=== PATIENT | male | born 1950 | race Hispanic/Latino ===

== ENCOUNTER 2017-12-09 11:49 | Emergency (ER) | payer MEDICARE ==
[2017-12-09] MEDS ORDERED: ONDANSETRON HCL 4 MG/2 ML VIAL ONE ×2 (12:08→12:52)
[2017-12-09] MEDS ORDERED: SODIUM CHLORIDE 0.9% 1000ML 1,000 ML IV ONE (12:09)
[2017-12-09 12:20] LABS: BASOPHILS % (AUTO) 0.3 % (0.0-5.0); HEMATOCRIT 43.8 % (42-54); MEAN CORPUSCULAR HEMOGLOBIN 31.4 pg (27.0-33.0); MEAN CORPUSCULAR HGB CONC 34.2 g/dL (32.0-36.0); MEAN CORPUSCULAR VOLUME 91.9 fL (79-99); MONOCYTES % (AUTO) 4.8 % (3.0-13.0); NEUTROPHILS % (AUTO) 87.6 % (40.0-77.0); PLATELET COUNT (AUTO) 251 K/uL (130-400); RED BLOOD CELL COUNT(AUTO) 4.77 MIL/uL (4.50-6.20); RED CELL DISTRIBUTION WIDTH 12.6 % (11.0-15.5); WHITE BLOOD COUNT (AUTO) 10.9 K/uL (4.8-10.8)
[2017-12-09 12:33] LABS: CREATININE 1.6 mg/dL (0.5-1.5); POTASSIUM 4.4 mmol/L (3.5-5.1)
[2017-12-09 12:52] LABS: LYMPHOCYTES % (AUTO) 7.3 % (21.0-51.0)
[2017-12-09] MEDS ORDERED: MORPHINE SULFATE 2 MG/ML 1ML SYG ONE (12:52)
[2017-12-09 12:55] LABS: ALBUMIN 3.5 g/dL (3.5-5.0); BILIRUBIN,TOTAL 0.8 mg/dL (0.2-1.0); CREATINE KINASE MB 0.8 ng/mL (0.5-3.6); TOTAL PROTEIN, SERUM 8.3 g/dL (6.0-8.3)
[2017-12-09 13:18] LABS: INR 0.97 (0.85-1.15); PARTIAL THROMBOPLASTIN TIME 28.3 SEC (26.3-35.5); PROTHROMBIN TIME 10.2 SEC (9.6-11.6)
[2017-12-09] MEDS ORDERED: INSULIN HUMULIN R 100 UNIT/ML 3ML SQ ONE (13:56)
== END 2017-12-09 17:40 | disposition home or self-care (01) ==
LOC: EDH 11:49
DX: J40 Bronchitis, not specified as acute or chronic (principal); E86.0 Dehydration; R42 Dizziness and giddiness; E11.9 Type 2 diabetes mellitus without complications; I10 Essential (primary) hypertension; Z72.0 Tobacco use; Z98.890 Other specified postprocedural states
CPT/HCPCS: 36415; 71046; 80053; 82550; 82553; 82948 ×3; 84484; 85025; 85610; 85730; 87804 ×2; 93005; 96361; 96374; 96375; 96376; 99285; J1815; J2405 ×2; J7030